=== PATIENT | female | born 1990 | race Caucasian/White ===

== ENCOUNTER 2016-06-18 12:28 | Inpatient (IN) ==
[2016-07-04] MEDS ORDERED: KEFZOL 1 GM/D5W 1 GM/50 ML IVPB IV PRN (00:26)
[2016-07-04] MEDS ORDERED: BRETHINE SUBQ PRN (00:26)
[2016-07-04] MEDS ORDERED: PEPCID IV PRN (00:26)
[2016-07-04] MEDS ORDERED: AMBIEN PO PRN ×2 (00:26→11:30)
[2016-07-04] MEDS ORDERED: ZOFRAN IV PRN (00:26)
[2016-07-04] MEDS ORDERED: STADOL IV PRN ×3 (00:26)
[2016-07-04] MEDS ORDERED: PEPCID PO PRN (00:26)
[2016-07-04] MEDS ORDERED: CYTOTEC PO ONE (01:00)
[2016-07-04 02:12] LABS: MANUAL DIFF NEEDED? NO
[2016-07-04 02:19] LABS: BASO% 0.2 % (0.0-0.8); EOS# 0.62 X1000 (0.0-0.7); EOS% 5.1 % (0.0-10.0); HEMATOCRIT 37.4 % (37.0-47.0); HEMOGLOBIN 11.8 g/dL (12.0-16.0); IMM GRAN# 0.03 X1000 (0.0-0.04); IMM GRAN% 0.2 % (0.0-0.5); LYMPH# 3.31 X1000 (1.2-3.4); LYMPH% 27.3 % (20.5-51.1); MCH 27.7 PG (27-31); MCHC 31.6 g/dL (33-37); MCV 87.8 FL (81-99); MONO# 1.11 X1000 (0.11-0.59); MONO% 9.1 % (1.7-9.3); MPV 11.5 FL (7.4-10.4); NEUT% 58.1 % (42.2-75.2); PLT 307 X1000 (130-400); RBC 4.26 XMIL (4.2-5.4)
[2016-07-04] MEDS: LR 1,000 ML IV SCH ×3 (03:07→09:45)
[2016-07-04] MEDS ORDERED: PITOCIN 30 UNITS/LR 30 UNITS/500 ML IV.SOLN IV SCH ×2 (05:18→07:00)
[2016-07-04] MEDS ORDERED: FENTANYL-BUPIV-NS 2 MCG-0.1% 200 ML EPIDURAL PRN (07:27)
[2016-07-04] MEDS ORDERED: XYLOCAINE-MPF 1% INJ ONE (07:30)
[2016-07-04] MEDS ORDERED: MINERAL OIL ONE (11:00)
[2016-07-04] MEDS ORDERED: XYLOCAINE-MPF 1% ONE (11:01)
[2016-07-04] MEDS ORDERED: PERCOCET-10 PO PRN (11:30)
[2016-07-04] MEDS ORDERED: BENADRYL PO PRN (11:30)
[2016-07-04] MEDS ORDERED: XYLOCAINE-MPF 1% INJ PRN (11:30)
[2016-07-04] MEDS ORDERED: NORCO-10 PO PRN (11:30)
[2016-07-04] MEDS ORDERED: PERCOCET-5 PO PRN (11:30)
[2016-07-04] MEDS ORDERED: NORCO-5 PO PRN (11:30)
[2016-07-04] MEDS ORDERED: PERI MEDS (DERMOPLAST/NUPERCAINAL/TUCKS) MISC PRN (11:30)
[2016-07-04] MEDS ORDERED: BENADRYL IV PRN (11:30)
[2016-07-04] MEDS ORDERED: MINERAL OIL PO PRN (11:30)
[2016-07-04] MEDS ORDERED: PITOCIN 30 UNITS/LR 30 UNITS/500 ML IV.SOLN IV ONE (11:30)
[2016-07-04] MEDS ORDERED: PITOCIN IM PRN (11:30)
[2016-07-04] MEDS ORDERED: BOOSTRIX VACCINE IM ONE (11:30)
[2016-07-04] MEDS ORDERED: HYDROXYZINE IM PRN (11:30)
[2016-07-04] MEDS ORDERED: CYTOTEC PO PRN (11:30)
[2016-07-04] MEDS ORDERED: HYDROXYZINE PO PRN (11:30)
[2016-07-04] MEDS ORDERED: M-M-R II VACCINE SUBQ ONE (11:30)
[2016-07-04] MEDS ORDERED: PITOCIN 20 UNITS/LR 20 UNITS/1,000 ML IV.SOLN IV SCH (11:30)
[2016-07-04] MEDS: MOTRIN PO PRN (18:17)
[2016-07-04] MEDS: PERICOLACE PO SCH (20:58)
[2016-07-04] MEDS: TYLENOL PO PRN (22:03)
[2016-07-05] MEDS: MOTRIN PO PRN ×3 (02:42→20:25)
[2016-07-05 06:31] LABS: MANUAL DIFF NEEDED? NO
[2016-07-05 06:53] LABS: BASO% 0.1 % (0.0-0.8); EOS# 0.43 X1000 (0.0-0.7); EOS% 3.1 % (0.0-10.0); HEMATOCRIT 31.3 % (37.0-47.0); HEMOGLOBIN 9.6 g/dL (12.0-16.0); IMM GRAN# 0.03 X1000 (0.0-0.04); IMM GRAN% 0.2 % (0.0-0.5); LYMPH# 3.23 X1000 (1.2-3.4); LYMPH% 23.5 % (20.5-51.1); MCH 27.5 PG (27-31); MCHC 30.7 g/dL (33-37); MCV 89.7 FL (81-99); MONO# 1.48 X1000 (0.11-0.59); MONO% 10.7 % (1.7-9.3); MPV 11.8 FL (7.4-10.4); NEUT% 62.4 % (42.2-75.2); PLT 276 X1000 (130-400); RBC 3.49 XMIL (4.2-5.4)
[2016-07-05] MEDS: TYLENOL PO PRN ×2 (07:22→16:28)
[2016-07-05] MEDS: PERICOLACE PO SCH (20:21)
[2016-07-06] MEDS: TYLENOL PO PRN (02:57)
[2016-07-06] MEDS: MOTRIN PO PRN (06:45)
[2016-07-06 07:20] VITALS: BP 125/77
== END 2016-07-06 12:20 | disposition home or self-care (01) ==
LOC: P.LD 07-03 23:36 → P.WC 07-04 15:14
PROVIDERS: ADMIT Obstetrics & Gynecology; ATTEND Obstetrics & Gynecology